=== PATIENT | male | born 1990 | race Caucasian/White ===

== ENCOUNTER 2023-07-25 10:34 | Emergency (ER) | payer BC ==
[~2023-07-25] VITALS: Ht 172.7 cm; Wt 76.1 kg
--- NOTE | 2023-07-25 11:03 | NUR ---
EKG BEING COMPLETED AT THIS TIME.
[2023-07-25 11:18] LABS: EOSINOPHILS # (AUTO) 0.1 X10'3 (0-0.9); EOSINOPHILS % (AUTO) 1.2 % (0-6); MEAN PLATELET VOLUME 7.5 FL (7.4-10.4); WHITE BLOOD COUNT 9.3 X10'3 (4.5-11.0)
[2023-07-25 11:20] LABS: BASOPHILS % (AUTO) 0.3 % (0-1); HEMATOCRIT 50.9 % (42.0-52.0); HEMOGLOBIN 17.3 g/dl (14.0-17.9); LYMPHOCYTES # (AUTO) 1.3 X10'3 (1.1-4.8); LYMPHOCYTES % (AUTO) 14.4 % (21-51); MEAN CORPUSCULAR HEMOGLOBIN 29.1 PG (27.0-31.0); MEAN CORPUSCULAR HGB CONC 34.1 g/dL (33.0-36.5); MEAN CORPUSCULAR VOLUME 85.5 FL (78-98); MONOCYTES # (AUTO) 0.7 X10'3 (0-0.9); NEUTROPHILS # (AUTO) 7.1 X10'3 (1.8-7.7); NEUTROPHILS % (AUTO) 76.1 % (42-75); PLATELET COUNT 337 X10'3 (140-440); RED BLOOD COUNT 5.95 X10'6 (4.70-6.10); RED CELL DISTRIBUTION WIDTH 13.8 % (11.5-14.5)
[2023-07-25 11:41] LABS: MAGNESIUM 2.1 MG/DL (1.5-2.4); PRO BRAIN NATRIURETIC PEPTIDE < 30 PG/ML (0-125)
[2023-07-25 12:15] VITALS: BP 128/96; PULSE 89; RESP 14; TEMP 98.9; O2SAT 98
--- NOTE | 2023-07-25 12:30 | NUR ---
PT IS DC READY PER TRACKER/RN INQ WITH DONAL ALCOCER IF NEWLY PLACED ORDS FOR VENOUS US STUDY, SECOND 12 LEAD EKG, CTA CHEST PE IS NECESSARY P/T DC. PER DONAL ALCOCER ORDS PLACED IN ERROR AND PT MAY BE DISCHARGED.
[2023-07-25 12:53] LABS: INR 1.1 INR; PROTHROMBIN TIME 11.5 SECONDS (9.0-12.0)
== END 2023-07-25 12:42 | disposition home or self-care (01) ==
LOC: ER 10:34
DX: R00.2 Palpitations (principal); R06.02 Shortness of breath; R07.89 Other chest pain; F41.9 Anxiety disorder, unspecified; R06.00 Dyspnea, unspecified
CPT/HCPCS: 36415; 71045; 83735; 83880; 84484; 85025; 85610; 93005; 99285